=== PATIENT | male | born 1985 | race Caucasian/White ===

== ENCOUNTER 2017-07-13 10:50 | Emergency (ER) | payer BC ==
--- NOTE | 2017-07-13 11:25 | EDM.PDOC ---
ED HPI GENERAL MEDICAL PROBLEM - General Chief Complaint: Cardiovascular Problem Stated Complaint: RAPID HEART RATE Time Seen by Provider: 07/13/17 11:05 Source of Information: Reports: Patient History Limitations: Reports: No Limitations - History of Present Illness INITIAL COMMENTS - FREE TEXT/NARRATIVE: c/o tachycardia lay down at 11p last night, felt HR 120, got up to watch TV to "calm myself down ", did not sleep all night, HR felt fast, he was anxious this AM he felt cold and sweaty and N. Decided to come to ED. no CP, no V no sob has alb HFA, did not use it says he was dx with COPD at [facility] 1y ago, uses alb HFA 1-2x/wk without benefit smokes 1 ppd 2y ago he was sent from [place] to [facility] for palpitations, they said "I did not need to be there", had an EST that was neg PSH neg PMH only as above meds none all NKA - Related Data Allergies Allergy/AdvReac Type Severity Reaction Status Date / Time No Known Allergies Allergy Verified 07/13/17 11:06 Home Meds: Home Meds NK [No Known Home Meds] 07/13/17 [History] Past Medical History - Past Health History Medical/Surgical History: Denies Medical/Surgical History Social & Family History - Tobacco Use Smoking Status *Q: Current Every Day Smoker Years of Tobacco use: 23 Packs/Tins Daily: 1 - Caffeine Use Caffeine Use: Reports: None - Recreational Drug Use Recreational Drug Use: No ED ROS GENERAL - Review of Systems Review Of Systems: See Below Constitutional: Reports: Diaphoresis HEENT: Reports: No Symptoms Respiratory: Reports: No Symptoms Cardiovascular: Reports: Palpitations. Denies: Chest Pain Endocrine: Reports: No Symptoms GI/Abdominal: Reports: Nausea : Reports: No Symptoms Musculoskeletal: Reports: No Symptoms Skin: Reports: No Symptoms Neurological: Reports: No Symptoms Psychiatric: Reports: No Symptoms Hematologic/Lymphatic: Reports: No Symptoms Immunologic: Reports: No Symptoms ED EXAM, GENERAL - Physical Exam Exam: See Below Exam Limited By: No Limitations General Appearance: Alert, WD/WN, Other (mildly anxious, alert, cooperative, nl sppech) Eye Exam: Bilateral Eye: Normal Inspection, PERRL Ears: Normal External Exam, Hearing Grossly Normal Nose: Normal Inspection, Normal Mucosa, No Blood Throat/Mouth: Normal Inspection, Normal Lips, Normal Teeth, Normal Gums, Normal Oropharynx, Normal Voice, No Airway Compromise Head: Atraumatic, Normocephalic Neck: Normal Inspection, Supple, Non-Tender, Full Range of Motion Respiratory/Chest: No Respiratory Distress, Lungs Clear, Normal Breath Sounds, No Accessory Muscle Use, Chest Non-Tender Cardiovascular: Regular Rate, Rhythm, No Edema, No Gallop, No Murmur, No Rub GI/Abdominal: Normal Bowel Sounds, Soft, Non-Tender, No Organomegaly, No Distention, No Mass Extremities: Normal Inspection, Normal Range of Motion, Non-Tender, No Pedal Edema Neurological: Alert, Oriented, CN II-XII Intact, Normal Cognition, No Motor/ Sensory Deficits Psychiatric: Normal Affect, Normal Mood Skin Exam: Warm, Dry, Intact, Normal Color, No Rash Lymphatic: No Adenopathy Course - Vital Signs Last Recorded V/S: Last Vital Signs Temp 37.1 C 07/13/17 11:00 Pulse 83 07/13/17 11:30 Resp 18 07/13/17 12:00 BP 146/87 H 07/13/17 12:00 Pulse Ox 98 07/13/17 12:00 - Orders/Labs/Meds Orders: Active Orders 24 hr Category Date Time Status EKG Documentation Completion [RC] ASDIRECTED Care 07/13/17 11:19 Ordered EKG 12 Lead [EK] Routine Ther 07/13/17 11:18 Ordered Labs: Laboratory Tests 07/13/17 07/13/17 07/13/17 Range/Units 11:22 11:22 11:22 WBC 8.2 (4.5-12.0) X10-3/uL RBC 5.48 (4.30-5.75) x10(6)uL Hgb 16.1 H (11.5-15.5) g/dL Hct 47.2 (30.0-51.3) % MCV 86.1 (80-96) fL MCH 29.4 (27.7-33.6) pg MCHC 34.1 (32.2-35.4) g/dL RDW 12.9 (11.5-15.5) % Plt Count 252 (125-369) X10(3)uL MPV 7.6 (7.4-10.4) fL Neut % (Auto) 53.3 (46-82) % Lymph % (Auto) 35.4 (13-37) % [place] % (Auto) 8.1 (4-12) % Eos % (Auto) 3 (1.0-5.0) % Baso % (Auto) 1 (0-2) % Neut # (Auto) 4.3 (1.6-8.3) # Lymph # (Auto) 2.9 (0.6-5.0) # [place] # (Auto) 0.7 (0.0-1.3) # Eos # (Auto) 0.2 (0.0-0.8) # Baso # (Auto) 0.1 (0.0-0.2) # D-Dimer, Quantitative (100-400) ng/mL Sodium 139 (135-145) mmol/L Potassium 3.7 (3.5-5.3) mmol/L Chloride 102 (100-110) mmol/L Carbon Dioxide 27 (21-32) mmol/L BUN 10 (7-18) mg/dL Creatinine 1.1 (0.70-1.30) mg/dL Est Cr Clr Drug Dosing 114.17 mL/min Estimated GFR (MDRD) > 60 (>60) BUN/Creatinine Ratio 9.1 (9-20) Glucose 104 (80-116) mg/dL Calcium 9.1 (8.6-10.2) mg/dL Total Bilirubin 0.4 (0.1-1.3) mg/dL AST 24 (5-25) IU/L ALT 57 H (12-36) U/L Alkaline Phosphatase 70 (56-112) IU/L Troponin I < 0.017 L (<0.017-0.056) ng/mL C-Reactive Protein 0.9 (0.5-0.9) mg/dL Total Protein 7.1 (6.0-8.0) g/dL Albumin 3.8 (3.5-5.2) g/dL Globulin 3.3 g/dL Albumin/Globulin Ratio 1.2 TSH, Ultra Sensitive 2.31 (0.36-3.74) IU/mL 07/13/17 Range/Units 11:22 WBC (4.5-12.0) X10-3/uL RBC (4.30-5.75) x10(6)uL Hgb (11.5-15.5) g/dL Hct (30.0-51.3) % MCV (80-96) fL MCH (27.7-33.6) pg MCHC (32.2-35.4) g/dL RDW (11.5-15.5) % Plt Count (125-369) X10(3)uL MPV (7.4-10.4) fL Neut % (Auto) (46-82) % Lymph % (Auto) (13-37) % [place] % (Auto) (4-12) % Eos % (Auto) (1.0-5.0) % Baso % (Auto) (0-2) % Neut # (Auto) (1.6-8.3) # Lymph # (Auto) (0.6-5.0) # [place] # (Auto) (0.0-1.3) # Eos # (Auto) (0.0-0.8) # Baso # (Auto) (0.0-0.2) # D-Dimer, Quantitative < 100 L (100-400) ng/mL Sodium (135-145) mmol/L Potassium (3.5-5.3) mmol/L Chloride (100-110) mmol/L Carbon Dioxide (21-32) mmol/L BUN (7-18) mg/dL Creatinine (0.70-1.30) mg/dL Est Cr Clr Drug Dosing mL/min Estimated GFR (MDRD) (>60) BUN/Creatinine Ratio (9-20) Glucose (80-116) mg/dL Calcium (8.6-10.2) mg/dL Total Bilirubin (0.1-1.3) mg/dL AST (5-25) IU/L ALT (12-36) U/L Alkaline Phosphatase (56-112) IU/L Troponin I (<0.017-0.056) ng/mL C-Reactive Protein (0.5-0.9) mg/dL Total Protein (6.0-8.0) g/dL Albumin (3.5-5.2) g/dL Globulin g/dL Albumin/Globulin Ratio TSH, Ultra Sensitive (0.36-3.74) IU/mL - Re-Assessments/Exams Free Text/Narrative Re-Assessment/Exam: 07/13/17 12:09 w/u neg, stress echo 08/19 from [facility] reviewed, no change in EKG in past 2y pt mentions that he sleeps poorly, [place] train [place] awake , had used Seroquel but it made him sleep in the daytime, has been taking Unisom 150 mg qhs and sleeps much better had used drugs until 12y ago Departure - Departure Time of Disposition: 12:10 Disposition: Home, Self-Care 01 Condition: Good Clinical Impression: Palpitations, Stress, Anxiety, Insomnia Instructions: Palpitations, Stress, Insomnia Referrals: PCP,None [Primary Care Provider] - Forms: ED Department Discharge Additional Instructions: Your tests are normal. Your EKG is normal and unchanged in the past 2 years. Continue usual activities. See your doctor in the next week for additional recommendations. Return to ED if you feel worse. - My Orders Last 24 Hours: My Active Orders 07/13/17 11:18 EKG 12 Lead [EK] Routine 07/13/17 11:19 EKG Documentation Completion [RC] ASDIRECTED - Assessment/Plan Last 24 Hours: My Active Orders 07/13/17 11:18 EKG 12 Lead [EK] Routine 07/13/17 11:19 EKG Documentation Completion [RC] ASDIRECTED
== END 2017-07-13 12:20 | disposition home or self-care (01) ==
LOC: FB.ED 10:50
DX: R00.2 Palpitations (principal); F41.9 Anxiety disorder, unspecified; G47.00 Insomnia, unspecified; F43.9 Reaction to severe stress, unspecified; F17.210 Nicotine dependence, cigarettes, uncomplicated
CPT/HCPCS: 36415; 80053; 84443; 84484; 85025; 85379; 86140; 93005; 99285

== ENCOUNTER 2021-10-11 22:53 | Emergency (ER) | payer SELFPAY ==
[2021-10-11 23:27] LABS: ESTIMATED GFR 81 mL/min (>60)
== END 2021-10-11 23:55 | disposition home or self-care (01) ==
LOC: FB.ED 22:53
DX: R07.89 Other chest pain (principal); J44.9 Chronic obstructive pulmonary disease, unspecified
CPT/HCPCS: 36415; 71045; 80053; 84484; 85025; 93005; 99285